=== PATIENT | female | born 1980 | race Caucasian/White ===

== ENCOUNTER 2020-03-21 12:49 | Outpatient (REF) | payer BC, SELFPAY ==
[2020-03-21 18:34] LABS: HCT 39.6 % (36.0-46.0); HGB 13.4 g/dL (12.0-15.5); Mean Corp. HGB Concentration 33.8 g/dL (32.0-36.0); Mean Corpuscular Hemoglobin 28.7 pg (27.0-33.0); Mean Corpuscular Volume 84.8 fL (80-95); Mean Platelet Volume 11.2 fL (8.0-11.0); Platelet Count 339 x1000/uL (130-400); RBC 4.67 m/cumm (4.00-5.20); RBC Distribution Width 12.1 % (11.7-14.6); White Blood Cell Count 6.05 k/cumm (4.4-10.8)
[2020-03-21 18:58] LABS: ALT 20 U/L (14-59); AST 14 U/L (15-37); Albumin 3.9 g/dL (3.4-5.0); Alkaline Phosphatase 68 U/L (46-116); Anion Gap 9.2 mmol/L (3-11); BUN 9 mg/dL (7-18); Bilirubin, Total 0.7 mg/dL (0.2-1.0); CO2 26.8 mmol/L (21.0-32.0); CREATININE 1.01 mg/dL (0.55-1.02); Calcium 8.9 mg/dL (8.5-10.1); Chloride 103 mmol/L (98-107); Ferritin 88 ng/mL (8-252); Glucose 81 mg/dL (74-106); Potassium 4.2 mmol/L (3.5-5.1); Sodium 139 mmol/L (136-145); Total Protein 7.3 g/dL (6.4-8.2)
== END 2020-03-21 13:09 ==
LOC: NCHCN 12:49
PROVIDERS: PCP Family Medicine; Visit Provider Family Medicine
DX: R53.83 Other fatigue (principal)
CPT/HCPCS: 80053; 85027; 82728; 84443

== ENCOUNTER 2020-06-09 15:20 | Outpatient (REF) | payer BC, SELFPAY ==
[2020-06-13 01:18] LABS: SARS-CoV-2 RNA Undetected (Undetected); SARS-CoV-2 Specimen Source Nasopharynx
== END 2020-06-09 15:40 ==
LOC: LBN 15:20
PROVIDERS: PCP Family Medicine; Visit Provider Nurse Practitioner Family
DX: J45.30 Mild persistent asthma, uncomplicated (principal)
CPT/HCPCS: U0003

== ENCOUNTER 2021-06-29 19:44 | Outpatient (REF) | payer BC, SELFPAY ==
[2021-06-29 19:47] LABS: ESR 4 mm/hr (0-20)
[2021-06-29 19:48] LABS: HCT 39.5 % (36.0-46.0); HGB 13.1 g/dL (11.2-15.7); MCH 28.1 pg (27.0-33.0); MCHC 33.2 % (32.0-36.0); MCV 84.6 fL (80-95); MPV 10.9 fL (8.0-11.0); Platelet Count 340 10^3/uL (130-400); RBC 4.67 10^6/uL (3.93-5.22); RDW 11.9 % (11.7-14.6); RDW-SD 36.5 fL; WBC 8.62 10^3/uL (4.4-10.8)
[2021-06-29 20:30] LABS: ALT 22 U/L (14-59); AST 18 U/L (15-37); Alkaline Phosphatase 82 U/L (46-116); Anion Gap 9.5 mmol/L (3-11); BUN 14 mg/dL (7-18); Bilirubin, Total 0.7 mg/dL (0.2-1.0); C-Reactive Protein 0.26 mg/dL (0.0-0.3); CO2 25.5 mmol/L (21.0-32.0); CREATININE 0.9 mg/dL (0.55-1.02); Calcium 8.8 mg/dL (8.5-10.1); Chloride 104 mmol/L (98-107); Creatine Kinase 130 U/L (26-192); Glucose 94 mg/dL (74-106); Potassium 4.1 mmol/L (3.5-5.1); Sodium 139 mmol/L (136-145); TSH (W/Ref FT4) 1.83 uIU/mL (0.36-3.74); Total Protein 7.5 g/dL (6.4-8.2)
[2021-07-01 10:11] LABS: Cyclic Citrullinated Peptide <2.5 U/mL (<5.0)
[2021-07-01 13:48] LABS: IgA 207 mg/dL (85-499); Interpretation (See Note); Tissue Transglutaminase IgA <1.2 U/mL (<4.0)
[2021-07-01 14:01] LABS: ANA Interpretation Positive (Negative); ANA Titer Pattern 1:320 Speckled
== END 2021-06-29 19:45 | disposition home or self-care (01) ==
LOC: NCHCN 19:44
PROVIDERS: PCP Family Medicine; Visit Provider Family Medicine
DX: M79.10 Myalgia, unspecified site (principal); R53.83 Other fatigue; R63.5 Abnormal weight gain
CPT/HCPCS: 80053; 82550; 82784; 83516; 85027; 85652; 86200; 84443; 86038; 86140

== ENCOUNTER 2025-03-12 10:27 | Emergency (ER) | payer BC, SELFPAY ==
[2025-03-12] VITALS (14 sets, daily range): BP systolic 119–121; BP diastolic 71–74; PULSE 59–76; RESP 0–24; TEMP 36.3–36.7; O2SAT 96–100
--- NOTE | 2025-03-12 10:30 | RT.EKG_ITS ---
APPROVED REPORT Exam: Resting ECG Reason for Exam: SOB Patient Location: E HR:78 bpm ECG Measurements Heart Rate 78 AXIS IL 169 P 42 QRSd 89 QRS 31 QT 381 T 59 QTc 434 Conclusion Sinus rhythm...normal P axis, V-rate 60- 99 No Occlusion AL
--- NOTE | 2025-03-12 10:42 | ED.GENADUL_ITS ---
Discharge Plan Disposition Patient Disposition: Home Discharge Details Clinical Impression: Localized swelling of right lower extremity Primary Care Provider: Lizzie Rahman ED Provider: Marciano Bowers Discharge Instructions Additional Instructions: You were seen in the emergency department for the swelling and discomfort in your right lower extremity. Your blood work showed no sign of any damage to your heart and no sign of blood clot in your lungs. Your ultrasound showed no sign of a blood clot in your lungs. As we discussed if you develop fevers any pain increasing swelling or any redness in your calf please return to the emergency department. Otherwise please follow-up with your primary care provider as needed next week. For your pain please take medications as follows: 1. Take acetaminophen (Tylenol), 1,000 mg (two 500 mg tabs) every 6 hours [2. Take ibuprofen (Advil), 400 mg every 6 hours.] HPI General Date/Time Provider Initiated Documentation: 03/12/25 10:41 . HPI Narrative: MDM This is a very well-appearing normothermic and not tachycardic 44-year-old female with right calf pain recent travel low risk for PE for this patient will undergo D-dimer testing. Given shortness of breath and chest pain we will obtain D-dimer to assess for PE as patient does have some mild right-sided unilateral leg swelling. No pain out of proportion to suggest necrotizing soft tissue infection. No vomiting to suggest increased risk for esophageal rupture. Equal breath sounds and no trauma so doubt pneumothorax. Not a dialysis pa tient nor hypotensive making my suspicion low for tamponade. ECG nonischemic and patient lacks risk factors for ACS. Will obtain troponin to assess for myocardial injury. No fevers or cough to suggest pneumonia. 1 PM Undetectable troponin. Negative D-dimer. Labs reassuring. Patient pending formal ultrasound the limited bedside ultrasound was negative for DVT. Chest x- ray unremarkable. 1:20 PM Patient's right lower extremity ultrasound without any signs of DVT. Patient advised to rest right lower extremity and treat as needed with ice. We discussed return indications including decreased sensation in her right foot or any falls or any fevers or increasing pain. She understood her return indications and was discharged with empiric trial of expectant outpatient management. HPI The patient presents for evaluation of right leg bruising. She reports a sensation of tightness in her right leg, which she first noticed last week. She describes the presence of a pocket-like structure below her ankle that appeared bruised, despite no recollection of any injury or trauma to the area. The discomfort was particularly noticeable when bearing weight on the affected leg. After elevating the leg overnight, the bruising subsided, although a slight puffiness remained. She has been engaging in bi-weekly workouts for an extended period, and during her most recent session, she experienced significant fatigue and shortness of breath, even though the intensity of the workout was not unusually high. She also observed a recurrence of the bruising and swelling in her leg, again without any known cause. She recalls a recent trip to [place] 2 weeks ago, during which she drove continuously from Tuesday to Tuesday, and then again on Tuesday. She reports no history of thromboembolic events in her legs or lungs. She experienced mild chest discomfort this morning and a transient dry cough following her workout yesterday, which resolved upon awakening today. She reports no history of cardiac issues, diabetes, hypercholesterolemia, hypertension, or vomiting. Exam General: Well-appearing in no acute distress speaking in complete sentences. Head: Normocephalic, atraumatic. Eye: Extraocular eye movements intact. No conjunctival injection. No scleral icterus. Ear, nose, mouth, throat: Grossly normal inspection. Normal voice, handling secretions normally. Neck: Trachea midline. Cardiovascular: Well-perfused distal extremities. Respiratory: Nonlabored respiration. Gastrointestinal: Nondistended abdomen. Musculoskeletal: Right lower extremity warm well-perfused intact PT and DP pulses. Cap refill less than 2 seconds in right toes. Patient is intact 5 out of 5 bilateral lower extremity strength in dorsi and plantarflexion. She does have some mild right-sided calf swelling. Skin: Normal for age and race, grossly normal temperature and turgor. No acute rash. Neurologic: Alert and appropriate, no apparent acute deficits. Psychiatric: Mood and manner are appropriate. Grooming and personal hygiene are appropriate. Related Data Allergies Allergy/AdvReac Type Severity Reaction Status Date / Time amoxicillin (Amoxicillin) Allergy Unverified 05/02/13 13:56 General Stated Complaint: SOB CUATE: 3 Course Vital Signs Vital signs: Vital Signs Temperature 36.3 C L 03/12/25 10:29 Pulse 76 03/12/25 10:29 Respiratory Rate 18 03/12/25 10:29 Blood Pressure 119/74 03/12/25 10:29 Pulse Oximetry 96 03/12/25 10:29 Temperature 36.3 C L 03/12/25 10:29 Temperature Source Oral 03/12/25 10:29 Pulse 76 03/12/25 10:29 Respiratory Rate 18 03/12/25 10:29 Blood Pressure 119/74 03/12/25 10:29 Pulse Oximetry 96 03/12/25 10:29 Oxygen Delivery Method Room Air 03/12/25 10:29 Oxygen Flow Rate 0 03/12/25 10:29 Medical Decision Making Quality:SDOH Health Related Social Needs: No Data to Display PFSH All Active Problems (Updated 03/12/25 @ 12:59 by Marciano Bowers MD) Localized swelling of right lower extremity (Acute) Social History Smoking/Tobacco Use Status: Current every day Tobacco Type: e-cigarettes Smoking risk assessment performed?: Yes Alcohol Intake: current Alcohol Intake frequency: holidays/special occasions only Drug use: Never Substance use type: does not use Housing: house Do you feel safe at home: Yes Do you feel safe in your relationship?: Yes POCUS Exam (ED) Limited Vascular Exam DATE OF EXAM: 03/12/25 TIME OF EXAM: 11:30 PROVIDER THAT PERFORMED THE STUDY: Marciano Bowers IS THIS A REPEAT EXAM DURING THIS ENCOUNTER: No Vascular Exam: Right lower extremity REASON FOR EXAM: Concern for DVT right lower extremity Exam Complete DIFFERENTIAL DIAGNOSES: Negative right lower extremity [id number] DVT study
--- NOTE | 2025-03-12 11:00 | DI.RAD_ITS ---
Exam(s) XR CHEST 2V PA LATERAL EXAM: XR CHEST 2V PA LATERAL CLINICAL HISTORY: Chest pain TECHNIQUE: 2D digital imaging was performed of the chest. Two images were obtained. PA and lateral views were obtained. COMPARISON: CR CHEST 2 VIEWS PA,LAT from 05/29/2011 FINDINGS: MEDIASTINUM: Normal. HEART: Normal. PULMONARY VASCULATURE: Normal. LUNGS: Clear. PLEURAL SPACE: No pleural effusion or pneumothorax. BONE:Within normal limits for the patient's age. OTHER FINDINGS:Normal. IMPRESSION: No acute pulmonary findings. DATA REPOSITORY: RADIATION DOSE DELIVERED:
--- NOTE | 2025-03-12 11:15 | DI.US_ITS ---
Exam(s) US LOWER EXTREMITY VENOUS RT EXAM: US LOWER EXTREMITY VENOUS RT CLINICAL HISTORY: Right leg swelling TECHNIQUE: Right lower extremity venous ultrasound performed using grayscale, color-flow, and spectr al Doppler analysis. COMPARISON: No exams were available for comparison FINDINGS: The right common femoral, femoral and popliteal veins demonstrate normal compressibility, augmentatio n, and color Doppler. The posterior tibial and peroneal veins are patent. The saphenofemoral junctio n is unremarkable. There is no evidence of a Pagan cyst. The soft tissues are unremarkable. IMPRESSION: No evidence of a right lower extremity DVT. DATA REPOSITORY:
[2025-03-12 11:31] LABS: Abs Immature Grans 0.04 10^3/uL (0.0-0.06); Absolute Basophil Count 0.06 10^3/uL (0.0-0.2); Absolute Eosinophil Count 0.41 10^3/uL (0.0-0.7); Absolute Lymphocyte Count 2.55 10^3/uL (1.2-3.4); Absolute Monocyte Count 0.45 10^3/uL (0.1-0.8); Absolute Neutrophil Count 4.35 10^3/uL (1.2-6.7); Basophils % 0.8 %; Eosinophils % 5.2 %; HCT 40.5 % (36.0-46.0); HGB 13.6 g/dL (11.2-15.7); Immature Grans % 0.5 %; Lymphocytes % 32.4 %; MCH 28.3 pg (27.0-33.0); MCHC 33.6 % (32.0-36.0); MCV 84 fL (80-95); MPV 9.8 fL (8.0-11.0); Monocytes % 5.7 %; Neutrophils % 55.4 %; Platelet Count 385 10^3/uL (130-400); RBC 4.81 10^6/uL (3.93-5.22); RDW 12.1 % (11.7-14.6); RDW-SD 36.5 fL; WBC 7.86 10^3/uL (4.4-10.8)
[2025-03-12 11:54] LABS: HCG Qual (Serum) Negative
[2025-03-12 11:58] LABS: Anion Gap 4.8 mmol/L (3-11); BUN 12 mg/dL (7-18); CO2 30.2 mmol/L (21.0-32.0); Calcium 9.3 mg/dL (8.5-10.1); Chloride 104 mmol/L (98-107); Estimated GFR 70.36 (mL/min/1.73m2); Glucose 91 mg/dL (74-106); Potassium 3.9 mmol/L (3.5-5.1); Sodium 139 mmol/L (136-145)
[2025-03-12 11:59] LABS: Troponin I < 4 ng/L (<or=51)
[2025-03-12 12:02] LABS: D-Dimer 201 ng/mlFEU (<500)
[2025-03-12 12:52] LABS: Troponin I < 4 ng/L (<or=51)
== END 2025-03-12 13:39 | disposition home or self-care (01) ==
PROVIDERS: Emergency Provider Emergency Medicine; PCP Family Medicine
DX: R22.41 Localized swelling, mass and lump, right lower limb (principal); R06.02 Shortness of breath; Z86.79 Personal history of other diseases of the circulatory system; F17.290 Nicotine dependence, other tobacco product, uncomplicated
CPT/HCPCS: 99283; 99284; 36415; 80048; 93005; 93971; 71046; 84484; 84703; 85025; 85379; 93010

== ENCOUNTER 2025-04-26 11:33 | Outpatient (REF) | payer BC, SELFPAY ==
[2025-04-19 22:31] LABS: TSH (W/Ref FT4) 3.04 uIU/mL (0.36-3.74)
[2025-04-23 13:51] LABS: Lyme Ab w Rflx to Lyme Confirm Negative (Negative)
== END 2025-04-26 11:34 | disposition home or self-care (01) ==
LOC: LBN 11:33
PROVIDERS: PCP Family Medicine; Visit Provider Physician Assistant Medical
DX: R53.83 Other fatigue (principal)
CPT/HCPCS: 84443; 86618

== ENCOUNTER 2025-07-26 11:55 | Outpatient (REF) | payer BC, SELFPAY ==
[2025-07-26 15:52] LABS: Calculated LDL 174 mg/dL (<100); Cholesterol 245 mg/dL (<200); HDL Cholesterol 57 mg/dL (>or=50); Triglyceride 73 mg/dL (<150)
[2025-07-26 16:28] LABS: Hemoglobin A1C 5.0 % (<5.7)
[2025-07-26 23:45] LABS: HIV-1/2 Ag & Ab Screen Negative (Negative)
[2025-07-26 23:48] LABS: Hepatitis C Ab w Rflx HCV PCR Negative (Negative)
== END 2025-07-26 11:56 | disposition home or self-care (01) ==
LOC: NCHCN 11:55
PROVIDERS: PCP Family Medicine; Visit Provider Family Medicine
DX: Z13.220 Encounter for screening for lipoid disorders (principal); Z13.1 Encounter for screening for diabetes mellitus; Z11.4 Encounter for screening for human immunodeficiency virus [HIV]; Z11.59 Encounter for screening for other viral diseases
CPT/HCPCS: 80061; 86803; 87389; 83036

== ENCOUNTER 2025-08-09 03:10 | Outpatient (CLI) | payer BC, SELFPAY ==
--- NOTE | 2025-08-09 | DI.MAMMO_ITS ---
Exam(s) MAMMO SCREENING EXAM: MAMMO SCREENING CLINICAL HISTORY: SCREENING, Z12.31 TECHNIQUE: Mammograms were interpreted according to the usual protocol including computer analysis with CAD system, tomosynthesis and C-view imaging. COMPARISON: 2014 through 2020 FINDINGS: The breasts are composed of heterogeneously dense fibroglandular densities, Breast Density category C. No suspicious masses or suspicious microcalcifications are seen. No skin thickening or abnormal axillary lymph nodes are seen. There has been no significant change from prior exams. IMPRESSION: BI-RADS Category 1, Negative mammogram. Yearly screening mammography is recommended. Breast Density: Category C - The breasts are heterogeneously dense, which may obscure small masses. Breast density Category C or D implies that the patient has dense breast tissue. Dense breast tissue can make it harder to find cancer on a mammogram. Dense breast tissue is also associated with an increased risk of breast cancer. This information about the result of the mammogram report was provided to the patient to raise their awareness. Use this report when you speak with the patient about their risks for breast cancer, which includes their family history. At that time, you may recommend additional screening tests (Ultrasound or MRI) as these tests may add significant information. A negative radiographic report should not delay biopsy if a dominant or clinically suspicious mass is present. Up to ten percent of cancers are not identified on mammography. A negative report may reinforce clinical impression. Adenosis and dense breasts may obscure an underlying neoplasm. False positive reports average 6 to 10%.
== END 2025-08-09 03:30 ==
PROVIDERS: PCP Family Medicine; Visit Provider Family Medicine
DX: Z12.31 Encounter for screening mammogram for malignant neoplasm of breast (principal); R92.323 Mammographic fibroglandular density, bilateral breasts; R92.333 Mammographic heterogeneous density, bilateral breasts
CPT/HCPCS: 77063; 77067